=== PATIENT | female | born 1990 | race Caucasian/White ===

== ENCOUNTER 2019-05-31 02:17 | Emergency (ER) | payer MEDICAID ==
[~2019-05-31] VITALS: Ht 162.6 cm; Wt 117.9 kg
[2019-05-31 02:23] VITALS: BP_SYST 154
--- NOTE | 2019-05-31 02:23 | NUR ---
Patient to ER bed 8 to gown for evaluation. Side rails up.
--- NOTE | 2019-05-31 02:28 | NUR ---
Patient was wheeled into ED by friends complaining of right knee pain. Pt had fallen while cosmic bowling and states someone fell on top of her right leg. Pt admitted to drinking alcohol tonight but states that she had not hit her head and denies losing consciousness. Pt unable to extend leg or put weight on foot due to pain. No other injuries/complaints per patient or noted.
[2019-05-31] MEDS ORDERED: MORPHINE 4 MG/ML INJ. SYRINGE IM ONE (02:30)
--- NOTE | 2019-05-31 02:31 | NUR ---
Portable Xray at bedside, pt tolerated well.
--- NOTE | 2019-05-31 02:50 | NUR ---
ER Dr. Meng at bedside examining patient.
[2019-05-31 03:20] VITALS: BP_SYST 145
--- NOTE | 2019-05-31 03:20 | NUR ---
Patient given written and verbal discharge instructions and verbalizes understanding. ER MD discussed with patient the results and treatment provided. Patient in stable condition. ID arm band removed. Rx of motrin and norco given. Patient educated on pain management and to follow up with PMD. Pain Scale 0. Opportunity for questions provided and answered. Medication side effect fact sheet provided.
== END 2019-05-31 03:20 | disposition home or self-care (01) ==
LOC: SED 02:17
DX: M25.561 Pain in right knee (principal)
CPT/HCPCS: 29505; 73560; 96372; 99283; J2270

== ENCOUNTER 2020-12-07 13:03 | Emergency (ER) | payer MEDICAID, OTHER ==
[~2020-12-07] VITALS: Ht 160 cm; Wt 122.5 kg
[2020-12-07 13:09] VITALS: BP_SYST 185
--- NOTE | 2020-12-07 13:35 | NUR ---
ER DR. OSUNA AT THE BEDSIDE EXAMINING PT
--- NOTE | 2020-12-07 13:37 | NUR ---
Patient to ER bed 08 to gown for evaluation. Side rails up.
--- NOTE | 2020-12-07 13:40 | NUR ---
Pt brought by self, A&Ox4, pt presents to ER with dizziness, high blood sugar abd high blood pressure, skin pink and warm, cap refill <3, VSS, respirations even and unlabored.
[2020-12-07 14:48] LABS: BASOPHILS # (AUTO) 0.1 K/uL (0.0-0.2); EOSINOPHILS % (AUTO) 0.6 % (0.0-4.0); HEMATOCRIT 45.1 % (36-48); HEMOGLOBIN 15.6 g/dL (12.0-16.0); LYMPHOCYTES # (AUTO) 2.3 K/uL (1.0-5.5); MEAN CORPUSCULAR HEMOGLOBIN 32 pg (27-31); MEAN CORPUSCULAR HGB CONC 35 % (32-36); MEAN CORPUSCULAR VOLUME 92 fL (79.0-98.0); MONOCYTES # (AUTO) 0.5 K/uL (0.0-1.0); MONOCYTES % (AUTO) 7.3 % (1.7-9.3); NEUTROPHILS # (AUTO) 4.2 K/uL (1.8-7.7); NEUTROPHILS % (AUTO) 59.1 % (40.0-70.0); PLATELET COUNT (AUTO) 243 K/uL (130-430); RED BLOOD CELL COUNT(AUTO) 4.88 MIL/uL (4.2-6.2); RED CELL DISTRIBUTION WIDTH 13.4 % (9.0-15.0); WHITE BLOOD COUNT (AUTO) 7.1 K/uL (4.8-10.8)
[2020-12-07 14:48] LABS: BILIRUBIN,URINE NEGATIVE (NEGATIVE); BLOOD, URINE 3+ (NEGATIVE); CLARITY/URINE CLEAR (CLEAR); COLOR,URINE YELLOW (YELLOW); GLUCOSE,URINE 2+ (NEGATIVE); KETONES,URINE NEGATIVE (NEGATIVE); LEUKOCYTE ESTERASE ,URINE NEGATIVE (NEGATIVE); NITRITE, URINE NEGATIVE (NEGATIVE); PROTEIN URINE 2+ (NEGATIVE)
[2020-12-07] MEDS: NACL 0.9% 1,000 ML IV ONE (14:56)
[2020-12-07 15:02] LABS: ANION GAP 7 (5-15); CALCIUM 9.1 mg/dL (8.4-11.0); CHLORIDE 97 mmol/L (98-107); CREATININE 0.73 mg/dL (0.55-1.30); GLUCOSE 300 mg/dL (70-99); POTASSIUM 3.4 mmol/L (3.5-5.1); SODIUM SERUM 133 mmol/L (136-145); UREA NITROGEN, BLOOD 13 mg/dL (8-21)
[2020-12-07 15:04] LABS: GFR AFRICAN AMERICAN 119 mL/min (>90)
[2020-12-07 15:08] LABS: BACTERIA,URINE RARE /HPF (None Seen); WBC,URINE 0-3 /HPF (0-3)
[2020-12-07 15:09] LABS: MUCUS,URINE 1+ /LPF (None Seen)
[2020-12-07 15:11] LABS: ALANINE AMINOTRANSFERASE 310 U/L (12-78); ALBUMIN 3.4 g/dL (3.4-4.8); ASPARTATE AMINOTRANSFERASE 256 U/L (10-37); TOTAL BILIRUBIN 0.8 mg/dL (0.0-1.0)
[2020-12-07 15:18] LABS: INR 1.1 (0.8-1.2); PROTHROMBIN TIME 11.2 SECS (9.5-12.5)
--- NOTE | 2020-12-07 15:30 | NUR ---
PT RESTING IN BED, NO S/SX OF DISTRESS, V/S STABLE, HYPERTENSIVE MD MADE AWARE
[2020-12-07] MEDS ORDERED: GLU500 PO (17:08)
[2020-12-07] MEDS ORDERED: LISI10TA29 PO (17:08)
[2020-12-07 17:27] VITALS: BP_SYST 161
--- NOTE | 2020-12-07 17:27 | NUR ---
Patient given written and verbal discharge instructions and verbalizes understanding. ER MD discussed with patient the results and treatment provided. Patient in stable condition. ID arm band removed. IV catheter removed intact and dressing applied, no active bleeding. Rx of METFORMIN AND LISINOPRIL given. Patient educated on pain management and to follow up with PMD. Pain Scale 0/10. Opportunity for questions provided and answered. Medication side effect fact sheet provided.
[2020-12-07] MEDS: INSULIN REGULAR, HUMAN 10 UNITS/0.1 ML INJ IVP ONE (17:45)
== END 2020-12-07 17:27 | disposition home or self-care (01) ==
LOC: SED 13:03
DX: E11.65 Type 2 diabetes mellitus with hyperglycemia (principal); I10 Essential (primary) hypertension; Z79.899 Other long term (current) drug therapy
CPT/HCPCS: 36415; 80053; 81000; 81025; 82962; 84484; 85025; 85610; 96360; 96372; 99283; J1815; J7030

== ENCOUNTER 2021-01-10 18:24 | Emergency (ER) | payer OTHER, MEDICAID ==
[~2021-01-10] VITALS: Ht 160 cm; Wt 120.2 kg
[~2021-01-10 18:24] MED LIST: GLU500 PO; LISI10TA29 PO
[2021-01-10 19:07] VITALS: BP_SYST 169
--- NOTE | 2021-01-10 19:07 | NUR ---
Patient triaged and placed in waiting room. VSS and patient appears in no acute distress at this time. Accompanied by self, awaiting available bed, and MD notified of need for MSE.
--- NOTE | 2021-01-10 22:31 | NUR ---
Patient to ER bed 02 to gown for evaluation. Side rails up.
--- NOTE | 2021-01-10 22:45 | NUR ---
PT RETURNED FROM CT
--- NOTE | 2021-01-10 23:37 | NUR ---
DR LOPEZ TO TALK WITH PT AND TO GO REVIEW CT RESULTS
[2021-01-11] MEDS ORDERED: IBUPROFEN 600 MG TABLET PO ONE
--- NOTE | 2021-01-11 00:05 | NUR ---
PT GIVEN MOTRIN 600MG PO FOR BACK PAIN
[2021-01-11] MEDS ORDERED: TRAM50TA2 PO (00:08)
[2021-01-11] MEDS ORDERED: IBUP-1969 PO (00:08)
[2021-01-11] MEDS ORDERED: CYCL10TA24 PO (00:08)
--- NOTE | 2021-01-11 00:25 | NUR ---
PT DISCHGED WITH AFTERCARE INSTRUCTIONS FOR HOME TO [facility] WITH FAMILY .STABLE
[2021-01-11 00:27] VITALS: BP_SYST 140
== END 2021-01-11 00:27 | disposition home or self-care (01) ==
LOC: SED 18:24
DX: S16.1XXA Strain of muscle, fascia and tendon at neck level, initial encounter (principal); S23.3XXA Sprain of ligaments of thoracic spine, initial encounter; S33.5XXA Sprain of ligaments of lumbar spine, initial encounter; Z79.899 Other long term (current) drug therapy; V49.49XA Driver injured in collision with other motor vehicles in traffic accident, initial encounter; Y93.89 Activity, other specified; Y92.89 Other specified places as the place of occurrence of the external cause; Y99.8 Other external cause status
CPT/HCPCS: 70450-TC; 71045; 72080-TC; 72125-TC; 76376; 81025; 99285

== ENCOUNTER 2021-05-20 17:14 | Emergency (ER) | payer OTHER, SELFPAY ==
[~2021-05-20] VITALS: Ht 160 cm; Wt 120.2 kg
[2021-05-20 17:14] VITALS: BP_SYST 161
[~2021-05-20 17:14] MED LIST changes: +CYCL10TA24 PO; +IBUP-1969 PO; +TRAM50TA2 PO
--- NOTE | 2021-05-20 17:14 | NUR ---
Pt to remain in ER lobby until ER bed becomes available.
--- NOTE | 2021-05-20 17:45 | NUR ---
Dr. Bosch to lobby to assess.
[2021-05-20 19:07] LABS: BASOPHILS # (AUTO) 0.1 K/uL (0.0-0.2); BASOPHILS % (AUTO) 0.8 % (0.0-2.0); EOSINOPHILS # (AUTO) 0.1 K/uL (0.0-0.4); EOSINOPHILS % (AUTO) 1.2 % (0.0-4.0); HEMATOCRIT 43.2 % (36-48); HEMOGLOBIN 14.9 g/dL (12.0-16.0); LYMPHOCYTES # (AUTO) 3.5 K/uL (1.0-5.5); LYMPHOCYTES % (AUTO) 43.2 % (20.5-51.5); MEAN CORPUSCULAR HEMOGLOBIN 31 pg (27-31); MEAN CORPUSCULAR HGB CONC 34 % (32-36); MEAN CORPUSCULAR VOLUME 90 fL (79.0-98.0); MONOCYTES # (AUTO) 0.6 K/uL (0.0-1.0); MONOCYTES % (AUTO) 7.3 % (1.7-9.3); NEUTROPHILS # (AUTO) 3.9 K/uL (1.8-7.7); NEUTROPHILS % (AUTO) 47.5 % (40.0-70.0); PLATELET COUNT (AUTO) 247 K/uL (130-430); RED BLOOD CELL COUNT(AUTO) 4.79 MIL/uL (4.2-6.2); RED CELL DISTRIBUTION WIDTH 13.4 % (9.0-15.0); WHITE BLOOD COUNT (AUTO) 8.2 K/uL (4.8-10.8)
[2021-05-20 19:16] LABS: CALCIUM 9.3 mg/dL (8.4-11.0); CREATININE 0.61 mg/dL (0.55-1.30); POTASSIUM 3.7 mmol/L (3.5-5.1)
--- NOTE | 2021-05-20 19:16 | NUR ---
Report to BRENNEN Weiss who will assume care.
--- NOTE | 2021-05-20 19:20 | NUR ---
PATIENT RESTING IN BED WITH EYES OPEN, NO C/O PAIN OR S/S OF DISCOMFORT. PATIENT'S CHEST RISE AND FALL SYMMETRICAL. BED IN LOW AND LOCKED POSITION.
[2021-05-20 19:25] LABS: ALBUMIN 3.6 g/dL (3.4-4.8); TOTAL BILIRUBIN 0.3 mg/dL (0.0-1.0)
--- NOTE | 2021-05-20 19:52 | NUR ---
Patient to bed 8 for evaluation and treatment
[2021-05-20] MEDS ORDERED: NACL 0.9% 1,000 ML IV ONE (20:15)
--- NOTE | 2021-05-20 21:15 | NUR ---
PATIENT RESTING IN BED WITH EYES OPEN, NO C/O PAIN OR S/S OF DISCOMFORT. PATIENT'S CHEST RISE AND FALL SYMMETRICAL. BED IN LOW AND LOCKED POSITION.
[2021-05-20] MEDS ORDERED: BENA20TA75 PO (21:23)
--- NOTE | 2021-05-20 21:30 | NUR ---
DR. NORIEGA WITH PATIENT.
[2021-05-20] MEDS: cloNIDine HCL 0.1 MG TABLET PO ONE ×2 (22:00→22:01)
--- NOTE | 2021-05-20 22:02 | NUR ---
CATAPRESS 0.2MG, ORDER NUMBER [id number], DOSES GIVEN AT 2100 HRS BUT CHARTED AT 2200 HRS.
--- NOTE | 2021-05-21 00:01 | NUR ---
PATIENT VERBALIZED UNDERSTANDING OF AFTERCARE INSTRUCTIONS, NO FURTHER QUESTIONS. PATIENT LEFT WITH ALL BELONGINGS. PATIENT A/OX4, NO C/O PAIN, AND PATIENT HAS STRONG GAIT.
[2021-05-21 00:16] VITALS: BP_SYST 128
== END 2021-05-21 00:16 | disposition home or self-care (01) ==
LOC: SED 17:14
DX: R07.89 Other chest pain (principal); E11.65 Type 2 diabetes mellitus with hyperglycemia; I10 Essential (primary) hypertension; Z79.84 Long term (current) use of oral hypoglycemic drugs; Z79.899 Other long term (current) drug therapy
CPT/HCPCS: 36415; 71045; 80053; 84484; 85025; 93005; 99285

== ENCOUNTER 2023-04-27 04:51 | Emergency (ER) | payer OTHER ==
[~2023-04-27] VITALS: Ht 160 cm; Wt 117.9 kg
[~2023-04-27 04:51] MED LIST changes: +BENA20TA75 PO
[2023-04-27 04:55] VITALS: BP_SYST 236; PULSE 75; RESP 20; TEMP 97.5; O2SAT 98
[2023-04-27] MEDS ORDERED: LABETALOL HCL 20 MG/4 ML CARTRIDGE IVP ONE (05:15)
[2023-04-27] MEDS ORDERED: NACL 0.9% 1,000 ML IV ONE (05:30)
[2023-04-27 06:01] LABS: BASOPHILS # (AUTO) 0.1 K/uL (0.0-0.2); BASOPHILS % (AUTO) 0.9 % (0.0-2.0); EOSINOPHILS # (AUTO) 0.1 K/uL (0.0-0.4); EOSINOPHILS % (AUTO) 0.9 % (0.0-4.0); LYMPHOCYTES # (AUTO) 4.2 K/uL (1.0-5.5); LYMPHOCYTES % (AUTO) 45.3 % (20.5-51.5); MEAN CORPUSCULAR HEMOGLOBIN 32 pg (27-31); MEAN CORPUSCULAR HGB CONC 35 % (32-36); MEAN CORPUSCULAR VOLUME 91 fL (79.0-98.0); MONOCYTES # (AUTO) 0.9 K/uL (0.0-1.0); MONOCYTES % (AUTO) 9.6 % (1.7-9.3); NEUTROPHILS # (AUTO) 4.1 K/uL (1.8-7.7); NEUTROPHILS % (AUTO) 43.3 % (40.0-70.0); PLATELET COUNT (AUTO) 234 K/uL (130-430); RED BLOOD CELL COUNT(AUTO) 4.71 MIL/uL (4.2-6.2); WHITE BLOOD COUNT (AUTO) 9.4 K/uL (4.8-10.8)
[2023-04-27 06:13] LABS: ANION GAP 12 (5-15); CALCIUM 9.2 mg/dL (8.4-11.0); CARBON DIOXIDE 26 mmol/L (23-29); CHLORIDE 97 mmol/L (98-107); CREATININE 0.79 mg/dL (0.55-1.30); GFR AFRICAN AMERICAN 107 mL/min (>90); GLUCOSE 364 mg/dL (74-106); POTASSIUM 3.4 mmol/L (3.5-5.1); SODIUM SERUM 135 mmol/L (136-145); UREA NITROGEN, BLOOD 11 mg/dL (8-21)
[2023-04-27 06:27] LABS: GFR NON AFRICAN-AMERICAN 89 mL/min (>90)
[2023-04-27 06:28] LABS: BARBITURATE, URINE NEGATIVE (NEG <=200); BENZODIAZEPINE, URINE NEGATIVE (NEG <=150); CANNABINOID, URINE NEGATIVE (NEG <=50); COCAINE, URINE NEGATIVE (NEG <=150); METHAMPHETAMINES SCREEN,URINE NEGATIVE (NEG <=500); OPIATE, URINE NEGATIVE (NEG <=100); PHENCYCLIDINE SCREEN,URINE NEGATIVE (NEG <=25); UR TRICYCLIC ANTIDEPRESSANTS NEGATIVE (NEG <=300); URINE AMPHETAMINE NEGATIVE (NEG <=500); URINE METHADONE NEGATIVE (NEG <=200); URINE OXYCODONE SCREEN NEGATIVE (NEG <=100)
[2023-04-27] MEDS ORDERED: INSULIN REGULAR, HUMAN 100 UNITS/ML, 3 ML VIAL SUBCUT ONE ×2 (06:30→07:30)
[2023-04-27] MEDS ORDERED: KETOROLAC TROMETHAMINE 15 MG VIAL IVP ONE (06:30)
[2023-04-27] MEDS ORDERED: INSULIN REGULAR, HUMAN 10 UNITS/0.1 ML, 3 ML VIAL ONE ×2 (06:40→07:30)
[2023-04-27] MEDS ORDERED: IBUP-1969 PO (07:46)
[2023-04-27 08:17] VITALS: BP_SYST 106; PULSE 76; RESP 20; TEMP 98; O2SAT 98
== END 2023-04-27 08:15 | disposition home or self-care (01) ==
LOC: SED 04:51
DX: R51.9 Headache, unspecified (principal); I16.0 Hypertensive urgency; E11.65 Type 2 diabetes mellitus with hyperglycemia; R73.9 Hyperglycemia, unspecified; I10 Essential (primary) hypertension; Z91.148 Patient's other noncompliance with medication regimen for other reason; Z79.899 Other long term (current) drug therapy
CPT/HCPCS: 99285; 96374; 70450; 96361; 96375; 80307; 80048; 84702; 85025; 84484; 36415; 93005; 76376; 81025; 96372; 82962; J1885; J7030; J1815

== ENCOUNTER 2023-11-01 15:44 | Emergency (ER) | payer OTHER ==
[~2023-11-01] VITALS: Ht 160 cm; Wt 117.9 kg
[2023-11-01 15:57] VITALS: BP_SYST 118; PULSE 96; RESP 18; TEMP 98.3; O2SAT 95
[2023-11-01] MEDS ORDERED: IBUP-1969 PO (16:43)
[2023-11-01] MEDS ORDERED: HYDR-3917 PO (16:43)
[2023-11-01] MEDS: KETOROLAC TROMETHAMINE 60 MG/2 ML VIAL IM ONE (16:51)
[2023-11-01] MEDS: HYDROcodone/ACETAMIN 10-325 MG TAB PO ONE (16:52)
[2023-11-01 17:17] VITALS: BP_SYST 118; PULSE 96; RESP 18; TEMP 98.3; O2SAT 95
== END 2023-11-01 17:10 | disposition home or self-care (01) ==
LOC: SED 15:44
DX: S92.515A Nondisplaced fracture of proximal phalanx of left lesser toe(s), initial encounter for closed fracture (principal); E11.9 Type 2 diabetes mellitus without complications; I10 Essential (primary) hypertension; Z79.899 Other long term (current) drug therapy; Z79.2 Long term (current) use of antibiotics; W01.0XXA Fall on same level from slipping, tripping and stumbling without subsequent striking against object, initial encounter; Y93.89 Activity, other specified; Y92.89 Other specified places as the place of occurrence of the external cause; Y99.8 Other external cause status
CPT/HCPCS: 99283; 73630; 96372; J1885